=== PATIENT | male | born 1960 | race Caucasian/White ===

== ENCOUNTER 2020-02-10 06:39 | Day surgery (SDC) | payer BC ==
[~2020-02-10] VITALS: Ht 180.3 cm; Wt 94.5 kg
[2020-02-10 07:39] VITALS: BP 137/84; Ht 180.3 cm; Wt 94.5 kg
[2020-02-10 07:42] LABS: HEMATOCRIT 41.7 % (42.0-54.0); HEMOGLOBIN 14.3 g/dL (13.5-17.5); MCHC 34.3 g/dL (31.0-37.0); MCV 87.6 fL (80.0-100.0); RBC 4.76 10x6/uL (4.20-6.10); RDW 12.3 % (11.5-14.5); WBC 5.9 10x3/uL (4.8-10.8)
--- NOTE | 2020-02-10 08:51 | NUR ---
[id number] DR.VOISE CHEEK.
--- NOTE | 2020-02-12 16:54 | OP ---
PATIENT NAME: BARAK ROBLERO MEDICAL RECORD: [id number] :60 [facility] AD[facility] DATE: SURGEON: NELIA GOMEZ DO DATE OF OPERATION: 02/10/2020 PROCEDURE: Colonoscopy with biopsy and polypectomy. INDICATIONS FOR PROCEDURE: History of colon polyps, family history of colon cancer, screening for colorectal cancer. SCOPE: Olympus video pediatric colonoscope. MEDICATIONS: Propofol 320 mg IV per anesthesia. WITHDRAWAL TIME: 16 minutes. ESTIMATED BLOOD LOSS: Minimal. COMPLICATIONS: None. FINDINGS: Informed consent was given. The patient was made comfortable with the above medication. After reaching an adequate level of sedation by slow IV push, the patient was placed on his left side. A digital rectal examination was performed and was normal. The endoscope was advanced under direct visualization through the rectum to the cecum and terminal ileum. The endoscope was slowly withdrawn. The mucosa was carefully examined. The prep quality was good. In the ileum, there were a few scattered small superficial ulcerations consistent with active ileitis. Biopsies were taken with cold forceps to submit for histopathology. There were no areas of colitis, ulcerations, or other abnormalities within the colon itself. There were a few benign-appearing sessile polyps, which ranged in size from 2 to 3 mm in diameter. Two were located in the ascending colon and one was located in the sigmoid colon. All polyps were removed using hot forceps. No diverticula were seen on today's examination. Retroflexion was performed in the rectum with visualization of a normal-appearing rectal wall. The endoscope was withdrawn from the patient. The patient tolerated the procedure well and there were no complications. IMPRESSION: 1. Three benign-appearing sessile polyps as described above, removed from the ascending and sigmoid colon with hot forceps. 2. Ulcerations within the terminal ileum consistent with active ileitis. The patient has had similar findings on past colonoscopies both in 2015 and 2012. Biopsies have been benign but were nonspecific. The patient has had [facility] IBD serology testing performed due to these findings and the pattern was not consistent with inflammatory bowel disease. PLAN AND RECOMMENDATIONS: 1. Discharge home when recovery parameters are met. 2. Follow up biopsy specimen results. 3. High-fiber diet. 4. Continue current medications. 5. Recall colonoscopy will be dependent on biopsy results but should take place within 3-5 years' time with 5 years likely being adequate. NTS:[id number] Voice Confirmation ID: [id number] DOCUMENT ID: [id number] OPERATIVE REPORT [id number] BARAK ROBLERO NATHAN A DO at 1654 CC: [id number] DICTATION DATE: 02/10/20 0844 CLAIM CLERK: 02/10/20 1805 [facility] 02/10/20 [place] [id number] [place] [id number]
== END 2020-02-10 09:30 | disposition home or self-care (01) ==
LOC: D.OPS 06:39
PROVIDERS: Anesthesiology; ATTEND Internal Medicine Gastroenterology
DX: Z86.010 Personal history of colon polyps (principal); Z83.71 Family history of colonic polyps; Z80.0 Family history of malignant neoplasm of digestive organs; Z12.11 Encounter for screening for malignant neoplasm of colon